=== PATIENT | male | born 1930 | race Caucasian/White ===

== ENCOUNTER 2017-11-04 07:34 | Observation (INO) | payer OTHER, MEDICARE ==
[~2017-11-04] VITALS: Ht 175.3 cm; Wt 81.6 kg
--- NOTE | 2017-11-04 08:12 | ED GENERAL ADULT ---
History of Present Illness General Chief Complaint: General Adult Stated Complaint: WEAK PER PT, RIGHT SIDED WEAKNESS, FALL Source: patient Exam Limitations: no limitations Vital Signs & Intake/Output Vital Signs & Intake/Output Vital Signs Date Time Temp Pulse Resp B/P B/P Pulse O2 O2 Flow FiO2 Mean Ox Delivery Rate 11/04 0924 61 20 179/86 98 Room Air 11/04 0821 98 Room Air 11/04 0738 96.5 73 20 136/73 98 Room Air Allergies Coded Allergies: apple (ITCHY MOUTH 03/29/16) delacruz (ITCHY MOUTH 03/29/16) oxycodone (RASH 03/29/16) Reconcile Medications Azithromycin 250 MG TABLET 1 DP PO DAILY ANTIBIOTIC, INFECTION (Reported) 2 the first day followed by 1 for days 2-5 Doxazosin Mesylate 4 MG TABLET 1 TAB PO DAILY HEART (Reported) Gluc/Sudhir-MSM#1/Vit C/Kamran/Bor (Jegbchr-Hnuek-UHH Complex Cplt) 375-500 MG TABLET 1 TAB PO DAILY SUPPLEMENT (Reported) Multivit-Min/FA/Lycopen/Lutein (Centrum Silver Tablet) 0.4 MG-300 MCG-250 MCG TABLET 1 TAB PO DAILY VITAMIN SUPPORT (Reported) Prednisone 10 MG TABLET 1 TAB PO DAILY STEROID (Reported) Triage Note: PT TO ED S/P FALL THIS AM. PT STATES "I FELT WOBBLY" CAUSING PT TO FALL TO THE FLOOR. DENIES HEADSTRIKE. C/O RIGHT SIDED WEKANESS. DENIES ANY PAIN. Triage Nurses Notes Reviewed? yes HPI: Patient is a 87-year-old male with impressively little past medical history who appears many years younger than his age and plays golf several times a week with no history of TIA or stroke who presented today after an episode of right-sided hemiparesis. His states that approximately 1 hour prior to arrival (around 7 AM) the patient began stumbling and complaining of weakness on his right side. This caused him to fall to the ground in their bedroom, but he denies head strike or any other significant trauma. He got up to a chair and found that his right side was weak; he states he was unable to lift his coffee cup with his right hand, but had intact function of his left. His administered 2 baby aspirins and called 911. By the time of ED arrival the patient reports subjective resolution of his symptoms, and I was informed of his presentation by the charge nurse. I came rapidly to the bedside to assess for stroke, and found an NIH stroke scale of 0. He does not take a routine daily aspirin dose. Past History Travel History Traveled to [place] past 21 day No Medical History Any Pertinent Medical History? see below for history Renal: benign prost hyperplasia Surgical History Surgical History: non-contributory Psychosocial History Who do you live with Spouse What is your primary language Yakut Tobacco Use: Never used ETOH Use: denies use Illicit Drug Use: denies illicit drug use Family History Hx Contributory? No Review of Systems Review of Systems Constitutional: Reports: see HPI. EENTM: Reports: no symptoms. Respiratory: Reports: no symptoms. Cardiovascular: Reports: no symptoms. GI: Reports: no symptoms. Genitourinary: Reports: no symptoms. Musculoskeletal: Reports: no symptoms. Skin: Reports: no symptoms. Neurological/Psychological: Reports: weakness. Denies: confusion, headache. Hematologic/Endocrine: Reports: no symptoms. Immunologic/Allergic: Reports: no symptoms. All Other Systems: Reviewed and Negative Physical Exam Physical Exam General Appearance: well developed/nourished, no apparent distress, alert, awake , anxious, comfortable Comments: HEENT: Inspection of the head reveals a normocephalic cranium with no signs of trauma. Ophtho: Extraocular muscles are intact and pupils are equal and reactive to light bilaterally with no afferent pupillary defect. The sclera are noninjected , and there is no obvious discharge. Neck: The trachea is midline, there is no obvious asymmetry or mass over the thyroid, and there is no midline cervical spine tenderness Respiratory: The lungs are clear and equal to auscultation bilaterally without wheezes, rales, or rhonchi. The patient exhibits no signs of labored breathing. Cardiac: Regular rhythm and non-tachycardic without appreciable murmurs on auscultation. No obvious JVD. GI: Examination of the abdomen reveals no significant focal tenderness in any of the four quadrants. There is negative Nixon's sign, negative McBurney's point tenderness, negative Fernando sign, negative Jordan-Thrasher sign, and no signs of peritonitis whatsoever on percussion or deep palpation. The skin is intact with no sign of trauma or infection. : Deferred Neuro: The patient is oriented to person, place, time, and situation, with no obvious focal motor deficits. There were no sensory deficits, and the patient exhibit purposeful movement of all 4 extremities. Cranial nerves II through XII are intact, and gait is normal. Behavioral: Calm and cooperative Dermatologic: Dermatologic examination reveals no diffuse rashes or exanthems, no petechiae, no ecchymoses, and no other signs of erythema or infection. Core Measures ACS in differential dx? No CVA/TIA Diagnosis: No Sepsis Present: No Sepsis Focused Exam Completed? No Progress Differential Diagnoses I considered the following diagnoses in my evaluation of the patient: Stroke, TIA Plan of Care: Orders Procedure Date/time Status URINALYSIS 11/04 805 Complete COMPREHENSIVE METABOLIC PANEL 11/04 805 Complete CBC WITHOUT DIFFERENTIAL 11/04 805 Complete EKG 11/04 805 Active Laboratory Tests 11/04/17 0920: Urine Color YEL, Urine Clarity CLEAR, Urine pH 6.0, Ur Specific [place] 1.020, Urine Protein NEG, Urine Ketones NEG, Urine Nitrite NEG, Urine Bilirubin NEG, Urine Urobilinogen 0.2, Ur Leukocyte Esterase NEG, Ur Microscopic EXAM NOT REQUIRED, Urine Hemoglobin NEG, Urine Glucose NEG 11/04/17 0809: Anion Gap 12, Estimated GFR > 60, BUN/Creatinine Ratio 18.2, Glucose 128 H, Calcium 9.4, Total Bilirubin 0.8, AST 30, ALT 38, Alkaline Phosphatase 56, Total Protein 6.4, Albumin 3.6, Globulin 2.8, Albumin/Globulin Ratio 1.3, CBC w Diff NO MAN DIFF REQ, RBC 4.62 L, MCV 86.7, MCH 29.4, MCHC 33.9, RDW 14.9 H, MPV 7.9, Gran % 65.0, Lymphocytes % 24.7, Monocytes % 8.6, Eosinophils % 1.3, Basophils % 0.4, Absolute Granulocytes 3.8, Absolute Lymphocytes 1.5, Absolute Monocytes 0.5, Absolute Eosinophils 0.1, Absolute Basophils 0 Diagnostic Imaging: Viewed by Me: CT Scan. Initial ED EKG: ECG performed at 8:14 AM shows normal sinus rhythm with a rate of 64, incomplete right bundle branch block and left anterior fascicular block, normal ST segments and T waves, normal intervals, no STEMI. No change as compared to prior on 03/29/2016. Comments: Patient presents for symptoms suggestive of stroke, with resolution, thus his working diagnosis is TIA. CT scan is segmented below was negative, labs unremarkable. Patient hospitalized for further stroke care. PATIENT: MELISSA BRAGG PRESENT AGE: 87 PATIENT ACCOUNT NO: [id number] : 31 LOCATION: [facility] ORDERING PHYSICIAN: David Antunez DO SERVICE DATE: 11/04/17 EXAM TYPE: CAT - CT HEAD WO IV CONTRAST EXAMINATION: CT HEAD WITHOUT CONTRAST CLINICAL INFORMATION: Right-sided hemiparesis. COMPARISON: 03/29/2016 TECHNIQUE: Contiguous axial imaging was performed from the skull base to vertex without intravenous administration of contrast. DLP: 608 mGy-cm FINDINGS: There is no evidence of acute intracranial hemorrhage or territorial infarction. No abnormal mass effect or midline shift is seen. Vargas to white matter differentiation is well preserved. No extra-axial fluid collections are identified. There is moderate generalized prominence of the ventricles and sulci, unchanged from the prior. There is mild hypoattenuation in the bihemispheric white matter, similar to the prior. There has been a canal wall up right mastoidectomy, with some mucosal thickening along the inferior margins of the mastoidectomy and opacification of the residual air cells at the mastoid tip, unchanged. The left mastoid air cells demonstrate minor opacification at the mastoid tip, also unchanged. There is mild mucosal thickening in the ethmoid and sphenoid air cells. There is a subcentimeter nodularity in the partially imaged left nasal cavity, possibly a polyp. There are benign scleral calcifications visualized in the orbits. There has been a right ocular lens extraction. No acute soft tissue abnormalities. IMPRESSION: No acute intracranial pathology. Moderate generalized volume loss and mild chronic microangiopathy, stable from 2016. Stable right canal wall up mastoidectomy. Trace fluid in the mastoid tips bilaterally. DICTATED BY: Becky White MD DATE/TIME DICTATED:11/04/17912 INTERNET SECURITY SPECIALIST:VICENTA DATE/TIME TRANSCRIBED:11/04/17912 CONFIDENTIAL, DO NOT COPY WITHOUT APPROPRIATE AUTHORIZATION. <Electronically signed in Other Vendor System> SIGNED BY: Becky White MD 11/04/17 0920 Departure Departure Time of Disposition: 949 Disposition: STILL A PATIENT Condition: Stable Clinical Impression Primary Impression: TIA (transient ischemic attack) Referrals: Janet ABEBE,Chris Lopez (PCP/Family) Departure Forms: Customer Survey General Discharge Information Observation Note Spoke With: Digna ABEBE,Pasha Physician Advisor Notified: NATALIE SOLORZANO DO Place Patient In: Non-ED OBS Care Area Rationale for Observation: My rational for observation is as follows the patient has suffered a transient ischemic attack and requires hospitalization for further workup with possible echocardiogram, observation of possible return symptoms, and neurology consultation, with possible further advanced neuro imaging such as MRI. The likelihood is that he will be deemed appropriate for discharge home tomorrow. Procedures Comments Comments: NIH stroke scale of 0 Critical Care Note Critical Care Note Critical Care Time: non-applicable
[2017-11-04 08:17] LABS: ABSOLUTE BASOPHIL COUNT 0 /CUMM (0.0-0.2); ABSOLUTE EOSINOPHIL COUNT 0.1 /CUMM (0.0-0.7); ABSOLUTE GRANULOCYTE CT 3.8 /CUMM (1.4-6.5); ABSOLUTE LYMPH COUNT 1.5 /CUMM (1.2-3.4); ABSOLUTE MONOCYTE COUNT 0.5 /CUMM (0.10-0.60); BASOPHIL % 0.4 % (0.0-2.0); EOSINOPHIL % 1.3 % (0-5); MEAN CORPUSCULAR HGB 29.4 PG (27.0-31.0); MEAN CORPUSCULAR HGB CONC 33.9 G/DL (33.0-37.0); MEAN CORPUSCULAR VOLUME 86.7 FL (80.0-94.0); MEAN PLATELET VOLUME 7.9 FL (7.4-10.4); PLATELET COUNT 145 /CUMM (130-400); RBC DISTRIBUTION WIDTH 14.9 % (11.5-14.5); RED BLOOD CELL CT 4.62 /CUMM (4.70-6.10); WHITE BLOOD CELL COUNT 5.9 /CUMM (4.8-10.8)
[2017-11-04] MEDS ORDERED: DOXAZOSIN MESYLA4 M1 PO (08:31)
[2017-11-04] MEDS ORDERED: AZITHROMYCIN250 M1 PO (08:31)
[2017-11-04] MEDS ORDERED: PREDNISONE10 M2 PO (08:32)
[2017-11-04] MEDS ORDERED: CENTRUM SILVER1 EAC3 PO (08:33)
[2017-11-04] MEDS ORDERED: GLUCOSA-CHOND-1 EACH PO (08:34)
--- NOTE | 2017-11-04 09:20 | CT SCAN REPORT ---
EXAMINATION: CT HEAD WITHOUT CONTRAST CLINICAL INFORMATION: Right-sided hemiparesis. COMPARISON: 03/29/2016 TECHNIQUE: Contiguous axial imaging was performed from the skull base to vertex without intravenous administration of contrast. DLP: 608 mGy-cm FINDINGS: There is no evidence of acute intracranial hemorrhage or territorial infarction. No abnormal mass effect or midline shift is seen. Vargas to white matter differentiation is well preserved. No extra-axial fluid collections are identified. There is moderate generalized prominence of the ventricles and sulci, unchanged from the prior. There is mild hypoattenuation in the bihemispheric white matter, similar to the prior. There has been a canal wall up right mastoidectomy, with some mucosal thickening along the inferior margins of the mastoidectomy and opacification of the residual air cells at the mastoid tip, unchanged. The left mastoid air cells demonstrate minor opacification at the mastoid tip, also unchanged. There is mild mucosal thickening in the ethmoid and sphenoid air cells. There is a subcentimeter nodularity in the partially imaged left nasal cavity, possibly a polyp. There are benign scleral calcifications visualized in the orbits. There has been a right ocular lens extraction. No acute soft tissue abnormalities. IMPRESSION: No acute intracranial pathology. Moderate generalized volume loss and mild chronic microangiopathy, stable from 2016. Stable right canal wall up mastoidectomy. Trace fluid in the mastoid tips bilaterally.
--- NOTE | 2017-11-04 10:23 | History & Physical ---
Lisa Walter 11/04/17 1022: General Information and HPI MD Statement: I have seen and personally examined MELISSA BRAGG and documented this H&P. The patient is a 87 year old M who presented with a patient stated chief complaint of [dizziness]. Source of Information: patient, family Exam Limitations: no limitations History of Present Illness: Patient is 87-year-old healthy male, with past medical history of vasovagal syncope 2 years ago, BPH, was brought into ER by with a chief complaint of right-sided weakness and feeling wobbly. Patient states that this morning when he woke up around 6:00, he was wobbly when taking shower, then he went to his office, and with his right hand he felt he could not move the computer mouse as he wanted, after that, when he got up he lost his balance and fell on the right side. The immediately came to help him into the chair. At that time patient felt weak on his right side, and he was unable to grab his Gatorade with the right hand however he was able to do it with the left hand. At that time EMS was called and patient was brought into the hospital. Of note during his episode of right-sided weakness, gave him 2 tablets of 81 mg aspirin. On review of systems, patient denies any headache/dizziness/chest pain/ palpitations/shortness of breath/abdominal discomfort/burning micturition/ hesitancy/urgency/weakness or swelling of bilateral lower extremities. Allergies/Medications Allergies: Coded Allergies: apple (ITCHY MOUTH 03/29/16) delacruz (ITCHY MOUTH 03/29/16) oxycodone (RASH 03/29/16) Home Med list Azithromycin 250 MG TABLET 1 DP PO DAILY ANTIBIOTIC, INFECTION (Reported) 2 the first day followed by 1 for days 2-5 Doxazosin Mesylate 4 MG TABLET 1 TAB PO DAILY HEART (Reported) Gluc/Sudhir-MSM#1/Vit C/Kamran/Bor (Kimiest-Hpfbp-DGC Complex Cplt) 375-500 MG TABLET 1 TAB PO DAILY SUPPLEMENT (Reported) Multivit-Min/FA/Lycopen/Lutein (Centrum Silver Tablet) 0.4 MG-300 MCG-250 MCG TABLET 1 TAB PO DAILY VITAMIN SUPPORT (Reported) Prednisone 10 MG TABLET 1 TAB PO DAILY STEROID (Reported) Past History Travel History Traveled to [place] past 21 day No Medical History Renal: benign prost hyperplasia Surgical History Surgical History: non-contributory Past Family/Social History Psychosocial History Where do you live? Home ETOH Use: denies use Illicit Drug Use: denies illicit drug use Functional Ability ADLs Independent: dressing, eating, toileting, bathing. Ambulation: independent Review of Systems Review of Systems Constitutional: Reports: see HPI. Exam & Diagnostic Data Last 24 Hrs of Vital Signs/I&O Vital Signs Date Time Temp Pulse Resp B/P B/P Pulse O2 O2 Flow FiO2 Mean Ox Delivery Rate 11/04 0924 61 20 179/86 98 Room Air 11/04 0821 98 Room Air 11/04 0738 96.5 73 20 136/73 98 Room Air Intake & Output 11/04 1600 11/04 0800 11/04 0000 Intake Total 0 Output Total Balance 0 Intake, Oral 0 Patient 81.647 kg Weight Weight Reported by Patient Measurement Method Physical Exam General Appearance Alert, Oriented X3, Cooperative, No Acute Distress Skin No Rashes, No Breakdown HEENT Atraumatic, PERRLA Neck Supple Cardiovascular Regular Rate, Normal S1, Normal S2 Lungs Clear to Auscultation, Normal Air Movement Abdomen Normal Bowel Sounds, Soft, No Tenderness Neurological Normal Gait, Normal Speech, Strength at 5/5 X4 Ext, Normal Tone, Sensation Intact, Cranial Nerves 3-12 NL, patient does have some component of horizontal nystagmus Extremities No Cyanosis, No Edema Last 24 Hrs of Labs/Shivam: Laboratory Tests 11/04/17 0920: Urine Color YEL, Urine Clarity CLEAR, Urine pH 6.0, Ur Specific [place] 1.020, Urine Protein NEG, Urine Ketones NEG, Urine Nitrite NEG, Urine Bilirubin NEG, Urine Urobilinogen 0.2, Ur Leukocyte Esterase NEG, Ur Microscopic EXAM NOT REQUIRED, Urine Hemoglobin NEG, Urine Glucose NEG 11/04/17 0809: Anion Gap 12, Estimated GFR > 60, BUN/Creatinine Ratio 18.2, Glucose 128 H, Calcium 9.4, Total Bilirubin 0.8, AST 30, ALT 38, Alkaline Phosphatase 56, Total Protein 6.4, Albumin 3.6, Globulin 2.8, Albumin/Globulin Ratio 1.3, Triglycerides 73, Cholesterol 135, LDL Cholesterol, Calc 61 L, HDL Cholesterol 60, Cholesterol/HDL Ratio 2, TSH Pending, Thyroxine (T4) Pending, CBC w Diff NO MAN DIFF REQ, RBC 4.62 L, MCV 86.7, MCH 29.4, MCHC 33.9, RDW 14.9 H, MPV 7.9, Gran % 65.0, Lymphocytes % 24.7, Monocytes % 8.6, Eosinophils % 1.3, Basophils % 0.4, Absolute Granulocytes 3.8, Absolute Lymphocytes 1.5, Absolute Monocytes 0.5 , Absolute Eosinophils 0.1, Absolute Basophils 0 Assessment/Plan Assessment: Patient is 87-year-old healthy male, with past medical history of vasovagal syncope 2 years ago, BPH, was brought into ER by with a chief complaint of right-sided weakness and feeling wobbly. Patient states that this morning when he woke up around 6:00, he was wobbly when taking shower, then he went to his office, and with his right hand he felt he could not move the computer mouse as he wanted, after that, when he got up he lost his balance and fell on the right side. The immediately came to help him into the chair. At that time patient felt weak on his right side, and he was unable to grab his Gatorade with the right hand however he was able to do it with the left hand. At that time EMS was called and patient was brought into the hospital. Of note during his episode of right-sided weakness, gave him 2 tablets of 81 mg aspirin. Labs and vitals as above. CT head negative for any hemorrhage Assessment and plan We will monitor the patient on telemetry floor as observation, patient's symptoms of intermittent right-sided weakness are suggestive of TIA, however patient does not have any risk factors for TIA except for pertinent family history of angina in father and CABG in brother. Patient does not have any past medical problems including high blood pressure/hyperlipidemia/diabetes. Will obtain MRI and neurology consult is placed with Dr. Almeida. Of note patient had a stress test done in 2010 which was normal and his echocardiogram from the same year shows ejection fraction of 55-60%. If patient continues to do well and does not develop any further weakness, please consider discharging in a.m. We will also obtain orthostatic vitals given his history of vasovagal syncope [address] the patient on every 4 neuro checks, his NIH scale on admission is 0. We'll continue aspirin. Since his lipid panel is normal, he does not need a statin. Patient was started on prednisone and azithromycin by his ENT on 10/27 due to chest congestion, productive cough whitish sputum and feeling of closed ear. will hold these meds for now and get a CXR. will give tessalon capsules for cough. DVT prophylaxis Lovenox Patient is full code As Ranked By This Provider Problem List: 1. TIA (transient ischemic attack) Core Measures/Misc (12/28) Acute Coronary Syndrome ACS Diagnosis: No Congestive Heart Failure Congestive Heart Failure Diagnosis No Cerebrovascular Accident CVA/TIA Diagnosis: Yes NIH Stroke Scale: Total 0 Date Last Known Well: 11/03/17 Symptom Start Date: 11/04/17 Symptom Start Time: 0700 tPA Risk/Benefit discussion Not a candidate of TPA as symptoms have resolved tPA given? No Swallow Evaluation Pass Current/Past Hx AFib/AFlutter Yes No Statin d/t LDL <70mg/dl VTE (View Protocol) VTE Risk Factors Age>40 No Mechanical VTE Prophylaxis d/t N/A MechProphylax Ordered No VTE Pharm Prophylaxis d/t NA PharmProphylax ordered Sepsis (View protocol) Sepsis Present: No If YES complete Sepsis Event Note If YES complete Sepsis Event Note James Shaffer MD 11/04/17 1550: Core Measures/Misc (12/28) Sepsis (View protocol) If YES complete Sepsis Event Note If YES complete Sepsis Event Note Attending MD Review Statement Attending Statement Attending MD Statement: examined this patient, discuss w/resident/PA/FINISH SPECIALIST, agreed w/resident/PA/FINISH SPECIALIST, discussed with family, reviewed EMR data (avail), discussed with nursing, amended to note Attending Assessment/Plan: Patient is a very pleasant 87-year-old male with history of benign prostatic hypertrophy who presented to emergency room with complaints of being very unsteady. He he also complained of right-sided weakness. He also had a fall. He was brought to emergency room for evaluation. Here at hemodynamically stable. On evaluation in the emergency room he has no neurologic deficits. He has no nystagmus on exam. Head CT showed no acute pathologies. Laboratory data showed no acute pathologies. He was referred to the medical service for further evaluation. He had a history of syncope about 7 years ago. Resume at the time to be vasovagal. No similar episodes since then. He is not on any medication week. Denies any chest pain or palpitations. So far in the emergency room he has had no arrhythmias. Recommendations: -Place in observation status on the telemetry unit. -Check orthostatic vitals. -Obtain echocardiogram. -Consultation with his cardiology service. -Follow-up results of MRI done to rule out posterior circulation disease.
--- NOTE | 2017-11-04 15:41 | MRI REPORT ---
EXAMINATION: MR BRAIN WITHOUT CONTRAST CLINICAL INFORMATION: Right-sided weakness. COMPARISON: Head CT from 11/04/2017 and 03/29/2016 TECHNIQUE: MRI of the brain without contrast was obtained using routine sequences. FINDINGS: No acute intracranial abnormality. There is moderate prominence of the lateral and third ventricles with a slightly colpocephalic appearance. Although there is also mild to moderate prominence of the sulci, ventricular prominence may be slightly out of proportion. There is mild to moderate partially confluent T2 prolongation in the periventricular, and also the deep and subcortical white matter of both hemispheres with a few additional scattered foci in the central marquez compatible with chronic microangiopathy. There is slight prominence of the extra-axial CSF spaces at the vertices, right more than left, which may reflect volume loss or small arachnoid cysts, and are stable. No focal reduced diffusion is seen to suggest acute or subacute cerebral ischemia. No intracranial mass, intracerebral edema, intra-axial blood products, midline shift, or extra-axial collection is visualized. The craniocervical junction and supersellar region appear unremarkable. Marrow signal is preserved. No upper cervical adenopathy. Normal arterial and venous vascular flow voids are present. There is fluid in the mastoid tips bilaterally. There has been a right canal wall up mastoidectomy. Mild mucosal thickening in the ethmoid air cells and right maxillary base with a few small right maxillary retention cysts. There has been a right ocular lens extraction. IMPRESSION: No acute intracranial abnormality. There is moderate prominence of the lateral and third ventricles and mild to moderate prominence of the sulci. This may reflect central greater than peripheral volume loss, and is stable, normal pressure hydrocephalus is hard to exclude. Mild to moderate bihemispheric T2 prolongation most likely on the basis of chronic microangiopathy.
--- NOTE | 2017-11-04 16:34 | Cons- Neurology ---
General Information and HPI Consulting Request Date of Consult: 11/04/17 Requested By: James Shaffer MD Reason for Consult: TIA Source of Information: patient, old records, ER MD Exam Limitations: no limitations History of Present Illness: 87-year-old man with no prior neurologic history developed difficulty standing morning and fell. His said he seemed to be falling off to one side. He denies dizziness or altered consciousness but admits that his right hand was weak, she gave him a Gatorade which he found quite heavy and difficult to drink from. No associated headache, no sensory visual or speech problems Allergies/Medications Allergies: Coded Allergies: apple (ITCHY MOUTH 03/29/16) delacruz (ITCHY MOUTH 03/29/16) oxycodone (RASH 03/29/16) Home Med List: Azithromycin 250 MG TABLET 1 DP PO DAILY ANTIBIOTIC, INFECTION (Reported) 2 the first day followed by 1 for days 2-5 Doxazosin Mesylate 4 MG TABLET 1 TAB PO DAILY HEART (Reported) Gluc/Sudhir-MSM#1/Vit C/Kamran/Bor (Zussevj-Tmawd-JSP Complex Cplt) 375-500 MG TABLET 1 TAB PO DAILY SUPPLEMENT (Reported) Multivit-Min/FA/Lycopen/Lutein (Centrum Silver Tablet) 0.4 MG-300 MCG-250 MCG TABLET 1 TAB PO DAILY VITAMIN SUPPORT (Reported) Prednisone 10 MG TABLET 1 TAB PO DAILY STEROID (Reported) Current Medications: Current Medications Sig/Matt Start time Last Medication Dose Route Stop Time Status Admin Acetaminophen 650 MG Q8P PRN 11/04 1230 AC PO Aspirin Buffered 162 MG ONCE ONE 11/04 1040 DC 11/04 PO 11/04 1041 1200 Atorvastatin Calcium 80 MG 1700 11/04 1700 CAN PO Benzonatate 100 MG TID PRN 11/04 1245 AC PO Doxazosin Mesylate 4 MG DAILY 11/04 1259 AC PO Enoxaparin Sodium 40 MG DAILY 11/05 0900 AC NM Review of Systems Review of Systems: On the current complete medical system review he has no complaints. Pertinent negatives for the absence of chest pain, palpitations, headache Past History Travel History Traveled to [place] past 21 day No Medical History Neurological: NONE Cardiovascular: NONE Renal: benign prost hyperplasia Surgical History Surgical History: non-contributory Psychosocial History Where Do You Live? Home Smoking Status: Never Smoked ETOH Use: one vodka/day Illicit Drug Use: denies illicit drug use Functional Ability ADLs Independent: dressing, eating, toileting, bathing. Ambulation: independent Exam & Diagnostic Data Vital Signs and I&O Vital Signs Date Time Temp Pulse Resp B/P B/P Pulse O2 O2 Flow FiO2 Mean Ox Delivery Rate 11/04 1148 97.5 75 20 180/85 98 11/04 0924 61 20 179/86 98 Room Air 11/04 0821 98 Room Air 11/04 0738 96.5 73 20 136/73 98 Room Air Intake & Output 11/04 1600 11/04 0800 11/04 0000 Intake Total 0 Output Total Balance 0 Intake, Oral 0 Patient 180 lb Weight Weight Reported by Patient Measurement Method Physical Exam: On exam he appears well and in no distress. No carotid bruits or heart murmur and peripheral pulses intact Alert, attentive, oriented, no language errors or dysarthria. 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 Leg power normal bilaterally on manual testing Tone normal Tendon reflexes symmetric without pathologic signs Sensory screen is normal No or cerebellar coordination abnormalities Gait testing deferred Last 48 Hours of Lab Results: Laboratory Tests 11/04 11/04 0920 0809 Chemistry Sodium (137 - 145 mmol/L) 141 Potassium (3.5 - 5.1 mmol/L) 3.7 Chloride (98 - 107 mmol/L) 107 Carbon Dioxide (22 - 30 mmol/L) 22 Anion Gap (5 - 16) 12 BUN (9 - 20 mg/dL) 20 Creatinine (0.7 - 1.2 mg/dL) 1.1 Estimated GFR (>60 ml/min) > 60 BUN/Creatinine Ratio (7 - 25 %) 18.2 Glucose (65 - 99 mg/dL) 128 H Calcium (8.4 - 10.2 mg/dL) 9.4 Total Bilirubin (0.2 - 1.3 mg/dL) 0.8 AST (17 - 59 U/L) 30 ALT (21 - 72 U/L) 38 Alkaline Phosphatase (< 127 U/L) 56 Total Protein (6.3 - 8.2 g/dL) 6.4 Albumin (3.5 - 5.0 g/dL) 3.6 Globulin (1.9 - 4.2 gm/dL) 2.8 Albumin/Globulin Ratio (1.1 - 2.2 %) 1.3 Triglycerides (<150 mg/dL) 73 Cholesterol (< 200 MG/DL) 135 LDL Cholesterol, Calc (65 - 129 mg/dL) 61 L HDL Cholesterol (40 - 60 mg/dL) 60 Cholesterol/HDL Ratio (0.00 - 4.88 %) 2 TSH (0.270 - 4.200 uIU/mL) 2.490 Thyroxine (T4) (4.5 - 10.9 ug/dL) 6.9 Hematology CBC w Diff NO MAN DIFF REQ WBC (4.8 - 10.8 /CUMM) 5.9 RBC (4.70 - 6.10 /CUMM) 4.62 L Hgb (14.0 - 18.0 G/DL) 13.6 L Hct (42 - 52 %) 40.0 L MCV (80.0 - 94.0 FL) 86.7 MCH (27.0 - 31.0 PG) 29.4 MCHC (33.0 - 37.0 G/DL) 33.9 RDW (11.5 - 14.5 %) 14.9 H Plt Count (130 - 400 /CUMM) 145 MPV (7.4 - 10.4 FL) 7.9 Gran % (42.2 - 75.2 %) 65.0 Lymphocytes % (20.5 - 51.1 %) 24.7 Monocytes % (1.7 - 9.3 %) 8.6 Eosinophils % (0 - 5 %) 1.3 Basophils % (0.0 - 2.0 %) 0.4 Absolute Granulocytes (1.4 - 6.5 /CUMM) 3.8 Absolute Lymphocytes (1.2 - 3.4 /CUMM) 1.5 Absolute Monocytes (0.10 - 0.60 /CUMM) 0.5 Absolute Eosinophils (0.0 - 0.7 /CUMM) 0.1 Absolute Basophils (0.0 - 0.2 /CUMM) 0 Urines Urine Color (YEL,AMB,STR) YEL Urine Clarity (CLEAR) CLEAR Urine pH (5.0 - 8.0) 6.0 Ur Specific [place] (1.001 - 1.035) 1.020 Urine Protein (NEG,<30 MG/DL) NEG Urine Ketones (NEG) NEG Urine Nitrite (NEG) NEG Urine Bilirubin (NEG) NEG Urine Urobilinogen (0.1 - 1.0 EU/dl) 0.2 Ur Leukocyte Esterase (NEG) NEG Ur Microscopic EXAM NOT REQUIRED Urine Hemoglobin (NEG) NEG Urine Glucose (N MG/DL) NEG Imaging/Other Studies: MRI: No acute intracranial abnormality. There is moderate prominence of the lateral and third ventricles and mild to moderate prominence of the sulci. This may reflect central greater than peripheral volume loss, and is stable, normal pressure hydrocephalus is hard to exclude. 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 Recommendations: Carotid Dopplers Echocardiogram Telemetry, rule out transient atrial fibrillation Fasting lipid profile Aspirin 81 mg EC daily Atorvastatin 40 mg p.o. daily Observe blood pressure Stroke education Patient may be a good candidate for early discharge if he remains stable 24 more hours on telemetry without dysrhythmias and blood pressure remains under good control Consult Acknowledgment - Thank you for your consult request.
--- NOTE | 2017-11-04 16:52 | RADIOLOGY REPORT ---
EXAMINATION: XR PORTABLE CHEST CLINICAL INFORMATION: Chronic cough. COMPARISON: Chest x-ray dated 01/02/2015. TECHNIQUE: Portable AP semierect view of the chest was obtained. FINDINGS: EKG leads overlie the chest. The cardiomediastinal silhouette is within normal limits in size. Lungs are bilaterally hyperinflated and hyperlucent, suspicious for underlying obstructive lung disease. Thickening of the central airways is noted. There is subtle increased reticular opacity in the left lung base, possibly due to atelectasis or evolving pneumonia. No pleural effusion or pneumothorax is seen. Degenerative changes are seen in the glenohumeral and acromioclavicular joints bilaterally and in the thoracic spine. IMPRESSION: Findings are consistent with obstructive lung disease. Superimposed left basilar opacities noted, raising the suspicion of atelectasis or evolving pneumonia. Close clinical correlation and follow-up chest x-ray is recommended.
[2017-11-04 16:54] VITALS: BP 146/80
[2017-11-04 17:43] VITALS: BP 146/80
--- NOTE | 2017-11-04 21:07 | ULTRASOUND REPORT ---
EXAMINATION: US DUPLEX CAROTID AND VERTEBRAL CLINICAL INFORMATION: TIA COMPARISON: None TECHNIQUE: Real-time ultrasound and Doppler techniques (integrating B-mode 2D vascular images, Doppler spectral analysis and color flow Doppler imaging) were utilized to interrogate the extracranial carotid and vertebral arteries bilaterally. The degree of stenosis determined by criteria similar to NASCET. FINDINGS: There is very mild plaque seen within both carotid bulbs. No turbulent flow. The peak systolic velocity within the right ICA measures up to 93 cm/s on the left 92 cm/s. The peak end-diastolic velocities measure 27 cm/s on the right and 29 cm/s on the left. There is no antegrade low resistance waveform noted within both vertebral arteries. IMPRESSION: Very mild stenosis both carotid bulbs considerably less than 50% luminal diameter narrowing. No hemodynamically significant stenosis.
[2017-11-04 21:43] VITALS: BP 118/66
[2017-11-05 06:55] VITALS: BP 128/68
[2017-11-05] MEDS ORDERED: ATORVASTATIN CA40 M1 PO ×2 (07:37→13:04)
[2017-11-05 08:06] LABS: ABSOLUTE BASOPHIL COUNT 0 /CUMM (0.0-0.2); ABSOLUTE EOSINOPHIL COUNT 0.1 /CUMM (0.0-0.7); ABSOLUTE GRANULOCYTE CT 3.7 /CUMM (1.4-6.5); ABSOLUTE LYMPH COUNT 1.5 /CUMM (1.2-3.4); ABSOLUTE MONOCYTE COUNT 0.4 /CUMM (0.10-0.60); BASOPHIL % 0.3 % (0.0-2.0); EOSINOPHIL % 2.6 % (0-5); GRANULOCYTE % 63.8 % (42.2-75.2); HEMATOCRIT 42.1 % (42-52); MEAN CORPUSCULAR HGB 28.9 PG (27.0-31.0); MEAN CORPUSCULAR VOLUME 87.7 FL (80.0-94.0); MEAN PLATELET VOLUME 8.3 FL (7.4-10.4); PLATELET COUNT 138 /CUMM (130-400); RBC DISTRIBUTION WIDTH 15.3 % (11.5-14.5); WHITE BLOOD CELL COUNT 5.8 /CUMM (4.8-10.8)
--- NOTE | 2017-11-05 09:24 | PN- Housestaff ---
Talya Noel 11/05/17 0924: Subjective Follow-up For: Resolved right sided weakness Complaints: no complaints Tele-Events Since Last Visit: Sinus bradycardia heart rate of 43-54 Subjective: Patient was seen and examined lying in bed comfortably. He says he feels much better and feels that he can go home today. No other complaints, no acute events overnight. Review of Systems Constitutional: Reports: see HPI. Objective Last 24 Hrs of Vital Signs/I&O Vital Signs Date Time Temp Pulse Resp B/P B/P Pulse O2 O2 Flow FiO2 Mean Ox Delivery Rate 11/05 0655 97.4 59 18 128/68 94 Room Air 11/04 2143 97.3 59 18 118/66 97 Intake & Output 11/05 1600 11/05 0800 11/05 0000 Intake Total 200 150 Output Total 450 Balance -250 150 Intake, Oral 200 150 Number 0 Bowel Movements Output, Urine 450 Patient 180 lb Weight Physical Exam General Appearance: Alert, Oriented X3, Cooperative, No Acute Distress Skin: No Rashes, No Breakdown, No Significant Lesion Skin Temp/Moisture Exam: Cool/Dry HEENT: Atraumatic Neck: Supple Cardiovascular: Regular Rate, Normal S1, Normal S2, No Murmurs Lungs: b/l basal crackles Abdomen: Normal Bowel Sounds, Soft, No Tenderness, No Hepatospenomegaly Neurological: Normal Speech, Strength at 5/5 X4 Ext, Normal Tone Extremities: No Clubbing, No Cyanosis, No Edema, Normal Pulses Assessment/Plan Assessment: 87-year-old male with past medical history of vasovagal syncope 2 years ago and BPH brought into the ER with chief complaint of right-sided weakness. The patient woke up at 5:30 AM and was getting ready to play golf. In the shower he noticed that the scope was slipping and dropping from his right hand. Coming out of the shower and he was in the kitchen when he fell down. He fell on his right shoulder. Does not complaint of hurting his head on the fall. Denied chest pain, altered or loss of consciousness, fecal or urinary incontinence, fatigue, fever, chills, loss of appetite, change in bowel or bladder habits. Vitals: Blood pressure this morning was 128/68 otherwise stable. He is afebrile and saturating well on room air. Problem list: TIA Plan: * Patient is not admitted to the floor. He is an obs pt * Patient is doing well and is stable. Thus plan is to discharge today * Repeat chest x-ray today * His azithromycin and prednisone on admission were held and will be discontinued upon discharge as well. * Continue aspirin 81 mg, atorvastatin 40 mg upon discharge * He will do a fasting lipid profile and will follow up with his primary care physician and neurologist upon discharge. Problem List: 1. TIA (transient ischemic attack) Pain Ratin Pain Location: None Pain Goal: Remain pain free Pain Plan: Not applicable Tomorrow's Labs & Rationales: cbc, bep Robinson Mckeongiles 11/05/17 1340: Attending MD Review Statement Attending Statement Attending MD Statement: examined this patient, discuss w/resident/PA/JACK SETTER, agreed w/resident/PA/JACK SETTER, discussed with family, reviewed EMR data (avail), discussed with nursing, discussed with case mgmt Attending Assessment/Plan: TIA- pt plan was to dc him home today . pt was told not to drive for the next few weeks. pt will restart his cardura which he takes for bph tonight. Repeat CXR shows no acute abnormality- pt received pred and azithromycin from ENT dr Ribera recently on 27 October. DC home off abx. d/w pt and pts the care plan. see dc summary for more detais.
--- NOTE | 2017-11-05 09:45 | Patient Discharge Instructions ---
Discharge Instructions General Discharge Information You were seen/treated for: Transient Ischemic attack Watch for these problems: If you have any of these, please visit your nearest emergency department: Weakness, numbness or tingling, chest pain, shortness of breath, fever, chills Special Instructions: -Please visit your primary care physician within 1 week of discharge Please visit your neurologist within 1 week of discharge Diet Recommended Diet: Heart Healthy Activity Activity Self Limited: Yes Acute Coronary Syndrome Inclusion Criteria At DC or during hospital stay patient has or had the following: ACS DIAGNOSIS No Discharge Core Measures Meds if any: Prescribed or Continued at Discharge Meds if any: NOT Prescribed or Continued at Discharge Congestive Heart Failure Inclusion Criteria At DC or during hospital stay patient has or had the following: CHF DIAGNOSIS No Discharge Core Measures Meds if any: Prescribed or Continued at Discharge Meds if any: NOT Prescribed or Continued at Discharge Cerebrovascular accident Inclusion Criteria At DC or during hospital stay patient has or had the following: CVA/TIA Diagnosis Yes Discharge Core Measures Meds if any: Prescribed or Continued at Discharge Statin (required if LDL =>70) Yes Meds if any: NOT Prescribed or Continued at Discharge Venous thromboembolism Inclusion Criteria VTE Diagnosis No VTE Type NONE VTE Confirmed by (Test) NONE Discharge Core Measures - Per Current guidelines, there needs to be overlap - treatment for the first 5 days of Warfarin therapy. - If discharged on Warfarin prior to 5 days of - overlap therapy, the patient will need to be - assessed for post discharge needs including - *Post discharge parental anticoagulation - *Warfarin and/or parental anticoagulation education - *Follow up date to check INR post discharge At least 5 days overlap therapy as Inpatient No Meds if any: Prescribed or Continued at Discharge Note: Overlap Therapy is Warfarin and Anticoagulant Meds if any: NOT Prescribed or Continued at Discharge
--- NOTE | 2017-11-05 11:14 | RADIOLOGY REPORT ---
EXAMINATION: XR CHEST CLINICAL INFORMATION: Chronic cough. COMPARISON: Chest done on 11/04/2017. TECHNIQUE: 2 views of the chest were obtained. FINDINGS: Mild diffuse linear reticular interstitial lung markings are noted, shows significant interval progression since prior study dated 11/04/2017, given the rapidity of onset, likely represents interstitial edema. Possibility of underlying evolving interstitial fibrosis, and infiltrate are also included in the differential possibly better visualized on the current study due to difference in technique. No superimposed focal airspace disease suggestive of pneumonia. The cardiomediastinal silhouette is within normal limits. There is no pleural effusion present. IMPRESSION: Bilateral diffuse linear prominent interstitial lung markings are noted predominantly involving both lung bases, nonspecific in appearance, may represent interstitial edema, infiltrate, fibrosis or combination thereof. No radiographic evidence of superimposed pneumonia.
[2017-11-05] MEDS ORDERED: ASPIRIN81 M4 PO ×2 (12:01→13:04)
--- NOTE | 2017-11-05 19:55 | ECHOCARDIOGRAM REPORT ---
MELISSA BRAGG Age: 87 : 1930 Gender: M Exam Date: 11/04/2017 19:08 Exam Location: 1 [address] Ht (in): 69 Wt (lb): 180 BSA: 2.01 BP: 146 / 80 Ordering Physician: Lisa Walter MD Referring Physician: Yoanna Covington MD Technologist: Anita Castellano [facility] Room Number: 180-02 Indications: Lightheadedness Rhythm: Sinus Technical Quality: Fair FINDINGS Left Ventricle Normal size left ventricle. Mild concentric left ventricular hypertrophy. Normal left ventricular ejection fraction visually estimated at >55%. Abnormal relaxation filling pattern of the left ventricle for age (stage 1 diastolic dysfunction). Right Ventricle Normal right ventricular size and function. Right Atrium Mild right atrial dilatation. Left Atrium Normal left atrial size. There is mild lipomatous hypertrophy of the interatrial septum Mitral Valve Mitral valve thickened. Mild mitral regurgitation. Aortic Valve Diffuse thickening (sclerosis) of the aortic valve cusps without reduced excursion. No aortic stenosis. No aortic regurgitation. Tricuspid Valve Tricuspid valve not well visualized, grossly normal. Mild tricuspid regurgitation. No evidence of pulmonary hypertension. Pulmonic Valve Pulmonic valve not well visualized, grossly normal. Trace pulmonic regurgitation. Pericardium No pericardial effusion. Great Vessels Normal size aortic root. CONCLUSIONS Normal size left ventricle. Mild concentric left ventricular hypertrophy. Normal left ventricular ejection fraction visually estimated at > 55%. Abnormal relaxation filling pattern of the left ventricle for age (stage 1 diastolic dysfunction). Mild right atrial dilatation. Mild mitral regurgitation. Mild tricuspid regurgitation. Trace pulmonic regurgitation. There is mild lipomatous hypertrophy of the interatrial septum. Glenroy Ramon M.D. (Electronically Signed) Final Date: 05 November 2017 19:54 MEASUREMENTS (Male / Female) Normal Values 2D ECHO LV Diastolic Diameter PLAX 3.4 cm 4.2 - 5.9 / 3.9 - 5.3 cm LV Systolic Diameter PLAX 1.9 cm 2.1 - 4.0 cm LV Fractional Shortening PLAX 44.1 % 25 - 46 % LV Ejection Fraction 2D Teich 76.5 % IVS Diastolic Thickness 1.2 cm LVPW Diastolic Thickness 1.2 cm LV Relative Wall Thickness 0.7 RV Internal Dim ED PLAX 2.7 cm 1.9 - 3.8 cm LVOT Diameter 2.2 cm Aortic Root Diameter 3.6 cm LA Systolic Diameter LX 3.6 cm 3.0 - 4.0 / 2.7 - 3.8 cm LA Volume 32.0 cm 18 - 58 / 22 - 52 cm Ascending Aorta Diameter 3.8 cm DOPPLER AV Peak Velocity 140.0 cm/s AV Peak Gradient 7.8 mmHg AV Mean Velocity 102.0 cm/s AV Mean Gradient 5.0 mmHg AV Velocity Time Integral 30.3 cm LVOT Peak Velocity 120.0 cm/s LVOT Peak Gradient 5.8 mmHg LVOT Mean Velocity 85.4 cm/s LVOT Mean Gradient 3.0 mmHg LVOT Velocity Time Integral 29.3 cm LVOT Stroke Volume 111.4 cm AV Area Cont Eq vti 3.7 cm AV Area Cont Eq pk 3.3 cm MV Peak Velocity 77.9 cm/s MV Peak Gradient 2.4 mmHg MV Mean Velocity 42.8 cm/s MV Mean Gradient 1.0 mmHg Mitral E Point Velocity 59.7 cm/s Mitral A Point Velocity 70.6 cm/s Mitral E to A Ratio 0.8 MV PHT Velocity 74.0 cm/s MV Deceleration [place] 180.0 cm/s MV Pressure Half Time 123.3 ms MV Area PHT 1.8 cm MV Deceleration Time 401.0 ms TR Peak Velocity 106.0 cm/s TR Peak Gradient 4.5 mmHg Right Atrial Pressure 5.0 mmHg Pulmonary Artery Systolic Pressure 9.5 mmHg Right Ventricular Systolic Pressure 9.5 mmHg PV Peak Velocity 78.5 cm/s PV Peak Gradient 2.5 mmHg PV Mean Velocity 54.3 cm/s PV Mean Gradient 1.0 mmHg PV Velocity Time Integral 16.3 cm LV E' Lateral Velocity 9.0 cm/s Mitral E to LV E' Lateral Ratio 6.7 LV E' Septal Velocity 5.9 cm/s Mitral E to LV E' Septal Ratio 10.0
--- NOTE | 2017-11-05 22:43 | Discharge Summary ---
Hospital Course Allergies: Coded Allergies: apple (ITCHY MOUTH 03/29/16) delacruz (ITCHY MOUTH 03/29/16) oxycodone (RASH 03/29/16) Discharge Instructions Medications at Discharge Discharge Medications: Stop taking the following medications: Prednisone (Prednisone) 10 MG TABLET ORAL DAILY Qty = 28 Continue taking these medications: Doxazosin Mesylate (Doxazosin Mesylate) 4 MG TABLET 1 Tablet ORAL DAILY Qty = 90 Comments: NOT GIVEN THIS ADMISSION Multivit-Min/FA/Lycopen/Lutein (Centrum Silver Tablet) 0.4 MG-300 MCG-250 MCG TABLET 1 Tablet ORAL DAILY Comments: NOT GIVEN THIS ADMISSION Gluc/Sudhir-MSM#1/Vit C/Kamran/Bor (Wbztizu-Eucqs-JZU Complex Cplt) 375-500 MG TABLET 1 Tablet ORAL DAILY Comments: NOT GIVEN THIS ADMISSION Atorvastatin Calcium (Atorvastatin Calcium) 40 MG TABLET 40 Milligram ORAL 5 PM Qty = 30 Instructions: . Comments: NOT GIVEN THIS ADMISSION This prescription has been renewed Start taking the following new medications: Aspirin (Aspirin*) 81 MG TAB.CHEW 81 Milligram ORAL DAILY Qty = 30 No Refills Instructions: . Comments: Last Taken:11/05/17 Time:9:25A.M Atorvastatin Calcium (Atorvastatin Calcium) 40 MG TABLET 40 Milligram ORAL 5 PM Qty = 30 No Refills Comments: NOT GIVEN THIS ADMISSION
== END 2017-11-05 13:45 ==
LOC: ERH 07:34 → 1NO 10:17 → ERHI 10:17 → ENRESERV 13:33 → ERHI 15:28 → ENTRNSPT 15:42 → EDTRNSPT 16:04 → EDTRNSPTSTS 16:04 → 1NO 16:08 → CMPTRNSPT 16:17 → ENPENDDIS 11-05 12:04 → ENTRNSPT 11-05 13:16 → EDTRNSPTSTS 11-05 13:24 → EDTRNSPT 11-05 13:24 → 1NO 11-05 13:45 → CMPTRNSPT 11-05 13:47
PROVIDERS: Internal Medicine; Student in an Organized Health Care Education/Training Program
DX: G45.9 Transient cerebral ischemic attack, unspecified (principal); Z79.52 Long term (current) use of systemic steroids; N40.0 Benign prostatic hyperplasia without lower urinary tract symptoms; Z79.899 Other long term (current) drug therapy
CPT/HCPCS: 1255; 6020; 70551; 36592; 71045; 71046; 81003; 82436; 87070; 93005; 93010; 93306; 96372; G0378; J1650; J3490